=== PATIENT | male | born 1965 | race Caucasian/White ===

== ENCOUNTER 2018-04-04 22:40 | Emergency (ER) | payer BC, OTHER ==
[2018-04-05] MEDS: ONDANSETRON (ODT) 4 MG TAB ODT (01:14)
[2018-04-05] MEDS: MECLIZINE 12.5 MG TAB PO (01:14)
== END 2018-04-05 01:49 | disposition home or self-care (01) ==
LOC: FTE 22:40
DX: S16.1XXA Strain of muscle, fascia and tendon at neck level, initial encounter (principal); S09.90XA Unspecified injury of head, initial encounter; S39.92XA Unspecified injury of lower back, initial encounter; R42 Dizziness and giddiness; R11.10 Vomiting, unspecified; V49.49XA Driver injured in collision with other motor vehicles in traffic accident, initial encounter
CPT/HCPCS: 70450; 72100; 72125; 99285-25